=== PATIENT | male | born 1980 | race African-American/Black ===

== ENCOUNTER 2021-02-24 18:35 | Emergency (ER) | payer SELFPAY | END 2021-02-24 20:00 | disposition home or self-care (01) | LOC: MADERS 18:35 | DX: I10 Essential (primary) hypertension (principal); Z76.0 Encounter for issue of repeat prescription; F17.210 Nicotine dependence, cigarettes, uncomplicated; Z79.899 Other long term (current) drug therapy | CPT/HCPCS: 99283 ==

== ENCOUNTER 2021-06-28 15:48 | Emergency (ER) | payer BC, SELFPAY ==
[2021-06-28] MEDS ORDERED: Losartan 25 MG TAB ONE (16:02)
== END 2021-06-28 16:09 | disposition home or self-care (01) ==
LOC: MADERS 15:48
DX: Z76.0 Encounter for issue of repeat prescription (principal); I10 Essential (primary) hypertension; F17.210 Nicotine dependence, cigarettes, uncomplicated; Z79.899 Other long term (current) drug therapy
CPT/HCPCS: 99283

== ENCOUNTER 2021-07-15 16:20 | Emergency (ER) | payer BC, SELFPAY | END 2021-07-15 18:03 | disposition home or self-care (01) | LOC: MADERS 16:20 | DX: I10 Essential (primary) hypertension (principal); F17.210 Nicotine dependence, cigarettes, uncomplicated; Z76.0 Encounter for issue of repeat prescription | CPT/HCPCS: 99281 ==

== ENCOUNTER 2021-07-25 17:37 | Emergency (ER) | payer SELFPAY | END 2021-07-25 18:09 | disposition home or self-care (01) | LOC: MADERS 17:37 | DX: F32.A Depression, unspecified (principal); I10 Essential (primary) hypertension; F17.210 Nicotine dependence, cigarettes, uncomplicated; Z79.899 Other long term (current) drug therapy | CPT/HCPCS: 99283 ==

== ENCOUNTER 2021-08-16 16:26 | Emergency (ER) | payer OTHER | END 2021-08-16 17:18 | disposition home or self-care (01) | LOC: MADERS 16:26 | DX: Z76.0 Encounter for issue of repeat prescription (principal); I10 Essential (primary) hypertension; F17.210 Nicotine dependence, cigarettes, uncomplicated; Z79.899 Other long term (current) drug therapy | CPT/HCPCS: 99281 ==

== ENCOUNTER 2021-12-18 18:12 | Emergency (ER) | payer BC, OTHER, SELFPAY | END 2021-12-18 18:47 | disposition home or self-care (01) | LOC: MADERS 18:12 | DX: F32.A Depression, unspecified (principal); Z76.0 Encounter for issue of repeat prescription; I10 Essential (primary) hypertension; F17.210 Nicotine dependence, cigarettes, uncomplicated | CPT/HCPCS: 99281 ==

== ENCOUNTER 2022-01-18 17:50 | Emergency (ER) | payer OTHER | END 2022-01-18 19:25 | disposition home or self-care (01) | LOC: MADERS 17:50 | DX: I10 Essential (primary) hypertension (principal); F41.9 Anxiety disorder, unspecified; Z76.0 Encounter for issue of repeat prescription; F17.210 Nicotine dependence, cigarettes, uncomplicated | CPT/HCPCS: 99283 ==

== ENCOUNTER 2022-02-05 15:00 | Emergency (ER) | payer OTHER | END 2022-02-05 16:30 | disposition home or self-care (01) | LOC: MADERS 15:00 | DX: F41.8 Other specified anxiety disorders (principal); F17.210 Nicotine dependence, cigarettes, uncomplicated; Z79.899 Other long term (current) drug therapy | CPT/HCPCS: 99283 ==

== ENCOUNTER 2022-02-18 19:20 | Emergency (ER) | payer BC, OTHER | END 2022-02-18 20:52 | disposition home or self-care (01) | LOC: MADERS 19:20 | DX: Z76.0 Encounter for issue of repeat prescription (principal); I10 Essential (primary) hypertension; Z79.899 Other long term (current) drug therapy; F17.210 Nicotine dependence, cigarettes, uncomplicated | CPT/HCPCS: 99281 ==

== ENCOUNTER 2022-03-31 18:36 | Emergency (ER) | payer OTHER | END 2022-03-31 19:20 | disposition home or self-care (01) | LOC: MADERS 18:36 | DX: I10 Essential (primary) hypertension (principal); F17.210 Nicotine dependence, cigarettes, uncomplicated; Z76.0 Encounter for issue of repeat prescription; Z79.899 Other long term (current) drug therapy | CPT/HCPCS: 99281 ==

== ENCOUNTER 2023-10-12 20:09 | Emergency (ER) | payer BC, SELFPAY ==
[2023-10-12 21:02] LABS: ALT (SGPT) 38 U/L (8-55); AST (SGOT) 16 U/L (5-34); Albumin 3.1 g/dL (3.5-5.0); Alkaline Phosphatase 106 U/L (40-110); Bilirubin, Total 0.3 mg/dL (0.2-1.2); Calcium 7.9 mg/dL (7.8-10.44); Chloride 92 mmol/L (98-107); Globulin 3.2 g/dL (2.4-3.5); Glucose 80 mg/dL (70-105); Potassium 4.3 mmol/L (3.5-5.1); Protein, Total 6.3 g/dL (6.0-8.3); Sodium 132 mmol/L (136-145)
[2023-10-12 21:12] LABS: #Basophils 0.1 thou/uL (0.0-0.2); #Eosinphils 0.1 thou/uL (0.0-0.7); #Lymphocytes 0.6 thou/uL (1.20-3.40); #Neutrophils 7.5 thou/uL (1.40-6.50); %Basophils 0.7 % (0.0-1.0); %Eosinophils 0.8 % (0.0-10.0); %Lymphocytes 6.8 % (21.0-51.0); %Monocytes 10.9 % (0.0-10.0); %Neutrophils 80.9 % (42.0-75.0); Anisocytosis SLIGHT = 6-15 cells (100X) (0-5/hpf); Burr Cells MODERATE= 6-15 cells (100X) (0-1/hpf); Hematocrit 24.4 % (42.0-52.0); Hemoglobin 7.8 g/dL (14.0-18.0); MDiff Complete? YES; Macrocytosis SLIGHT = 6-15 cells (100X) (0-5/hpf); Mean Corpuscular HGB CONC 31.9 g/dL (32.0-36.0); Mean Corpuscular Hemoglobin 34.2 pg (27.0-31.0); Mean Corpuscular Volume 107.1 fl (78.0-98.0); Mean Platelet Volume 5.3 fL (7.4-10.4); Ovalocytes SLIGHT = 2-5 cells (100X) (0-1/hpf); Platelet Adequacy Comment Appears Adequate; Platelet Count 157 10x3/uL (130-400); RBC Distribution Width 18.6 % (11.5-14.5); Red Blood Cell (RBC) Count 2.27 mill/uL (4.70-6.10); Schistocytes SLIGHT = 2-5 cells (100X) (0-1/hpf); White Blood Cell (WBC) Count 9.3 10x3/uL (4.8-10.8)
[2023-10-12 21:13] LABS: Carbon Dioxide Less than 8 mmol/L (22-29)
[2023-10-12 21:17] LABS: Calc. Creatinine Clearance 0 mL/min (70-130)
[2023-10-12 21:32] LABS: Troponin I 0.295 ng/mL (< 0.028)
[2023-10-12] MEDS ORDERED: Furosemide 40 MG (4 mL) VIAL ONE (21:37)
[2023-10-12] MEDS ORDERED: Aspirin Chewable 81 MG TAB ONE (21:37)
[2023-10-12 21:38] LABS: BUN (Urea Nitrogen) 194 mg/dL (8.9-20.6)
[2023-10-12] MEDS ORDERED: Lorazepam 2 MG/ML VIAL ONE (21:50)
[2023-10-12] MEDS ORDERED: Nitroglycerin 50 MG/250 ML BOT 250 ML ONE (21:50)
[2023-10-12 21:51] LABS: CK (CPK) 606 U/L (30-200); Lipase 135 U/L (8-78)
== END 2023-10-12 23:23 ==
LOC: MADERS 20:09
DX: I21.4 Non-ST elevation (NSTEMI) myocardial infarction (principal); N17.9 Acute kidney failure, unspecified; D64.9 Anemia, unspecified; I11.0 Hypertensive heart disease with heart failure; I50.9 Heart failure, unspecified; I16.1 Hypertensive emergency; F17.210 Nicotine dependence, cigarettes, uncomplicated; Z79.899 Other long term (current) drug therapy
CPT/HCPCS: 71045; 80053; 82550; 83690; 83880; 84484; 85025; 93005; 96365; 96375; J1940; J2060